=== PATIENT | male | born 1990 | race Caucasian/White ===

== ENCOUNTER → 2016-06-08 | Outpatient (CLI) | payer OTHER | END | disposition home or self-care (01) | LOC: C.RDSM 14:52 | PROVIDERS: ATTEND Physical Medicine & Rehabilitation Sports Medicine | DX: M25.512 Pain in left shoulder (principal) ==

== ENCOUNTER → 2016-06-16 | Outpatient (CLI) | payer OTHER ==
[~2016-06-16] MED LIST: GADAVIST IV PRN
--- NOTE | 2016-06-16 12:15 | DIAGNOSTIC IMAGING REPORT ---
FLUOROSCOPIC GUIDED LEFT SHOULDER ARTHROGRAM FLUOROSCOPY TIME: 5 seconds. HISTORY: Left shoulder pain.. PROCEDURE: After obtaining written informed consent, the patient was placed supine on the fluoroscopy table. A suitable site for needle insertion was marked using fluoroscopic guidance. The left shoulder was prepped and draped in the usual sterile fashion. 1% lidocaine was used for skin, subcutaneous and deep soft tissue anesthesia. Under intermittent fluoroscopic guidance, a 22 gauge 2.5 inch spinal needle was inserted into the left glenohumeral joint. A total of 14 cc of one-to-one mixture of dilute Magnevist (0.1 cc in 10 cc saline) and Optiray 300 were injected. The needle was then removed. There were no apparent complications. The patient was transported to for further imaging. IMPRESSION: Fluoroscopic-guided left shoulder arthrogram without immediate complication. Total injected volume was 14 cc. MR portion of the examination will be dictated separately. Electronically signed by: Marcelo Gisbon M.D. 06/16/2016 12:13 PM Dictated Date/Time: 06/16/2016 12:13 PM
--- NOTE | 2016-06-16 12:34 | DIAGNOSTIC IMAGING REPORT ---
MRI ARTHROGRAM OF THE LEFT SHOULDER CLINICAL HISTORY: Left shoulder pain. Instability. COMPARISON STUDY: Left shoulder radiographs June 08, 2016. TECHNIQUE: Following a fluoroscopically guided left shoulder arthrogram and utilizing a 1.5 Radha magnet, multiplanar, multi echo imaging of the left shoulder was performed without intravenous contrast. FINDINGS: There is mild posterior subluxation of the humerus with respect to the glenoid. There is no evidence for dislocation at this time. The proximal long head of biceps tendon is intact. There is no full-thickness rotator cuff tear. A Hill-Sachs deformity is noted. The glenoid labrum is diminutive. There is a tear of the superior posterior glenoid labrum. There is also a suspected tear of the anterior inferior glenoid labrum. No bony Bankart is present. No mass or fluid collection is shown adjacent to the left shoulder. There is no significant cartilage abnormality. IMPRESSION: 1. Complex circumferential labral tear, as described above. 2. Hill-Sachs deformity indicative of a previous anterior shoulder dislocation. 3. Posterior subluxation of the humeral head without dislocation at this time. 4. No full-thickness rotator cuff tear. Electronically signed by: Taiwo Butterfield M.D. 06/16/2016 12:32 PM Dictated Date/Time: 06/16/2016 12:20 PM
== END | disposition home or self-care (01) ==
LOC: C.MRIBC 10:57
PROVIDERS: ATTEND Physical Medicine & Rehabilitation Sports Medicine
DX: M25.512 Pain in left shoulder (principal); M25.312 Other instability, left shoulder; S43.022A Posterior subluxation of left humerus, initial encounter; X58.XXXA Exposure to other specified factors, initial encounter

== ENCOUNTER → 2016-07-14 | Day surgery (SDC) | payer OTHER ==
[2016-06-26 08:35] VITALS: Ht 190.5 cm; Wt 95.5 kg
[~2016-07-14] VITALS: Ht 190.5 cm; Wt 95.5 kg
[~2016-07-14] MED LIST changes: +ATROPINE SULFATE 0.1 MG/ML 5ML SYR IV PRN; +BUPIVACAINE/EPINEPHRINE 0.5% MPF 1:200,000 30 ML VIAL ONE; +CEFAZOLIN 2000 MG/60 ML D5W IV SCH; +DEXAMETHASONE SOD INJ 4 MG/ML VIAL ONE; +EpHEDrine SULFATE INJ 50 MG/ML AMP IV PRN; +EpINEphrine INJ 1MG/ML AMP 1 MG/ML AMP ONE; +FENTANYL CITRATE INJ 50 MCG/1 ML 2 ML VIAL ONE; -GADAVIST IV PRN; +GLYCOPYRROLATE INJ 0.2 MG/ML VIAL ONE; +HYDROmorphone INJ 1 MG/ML SYR IV PRN; +LACTATED RINGER'S 1000ML 1,000 ML IV SCH; +LEVOFLOXACIN 500 MG TAB PO ONE; +LIDOCAINE HCL 1% MPF 2 ML VIAL ONE; +LIDOCAINE HCL 2% 2 ML VIAL (20MG/ML) ONE; +MIDAZOLAM HCL 1 MG/ML 2ML VIAL ONE; +NEOSTIGMINE METHYLSULFATE 5 MG/5 ML SYR ONE; +ONDANSETRON INJ 2 MG/ML 2 ML VIAL IV PRN; +ONDANSETRON INJ 2 MG/ML 2 ML VIAL ONE; +OXYCODONE/ACETAMINOPHEN 5-325 TAB PO PRN; +PROPOFOL IV EMULSION 10 MG/ML 20 ML VIAL IV ONE; +ROCURONIUM BROMIDE 10 MG/ML 5 ML VIAL ONE; +ROPIVACAINE 0.5% 5 MG/ML 30 ML VIAL ONE; +SODIUM CHLORIDE 0.9% 1000ML 1,000 ML IV SCH
--- NOTE | 2016-07-14 07:31 | History & Physical Bridge Note ---
H&P Re-Evaluation Bridge Note: I have examined the patient, reviewed the History & Physical and in the interval since the performance of the History & Physical I have noted the following changes of clinical significance: No changes noted
--- NOTE | 2016-07-14 07:32 | Discharge Instructions ---
Discharge Instructions Date of Service July 14, 2016. Visit Reason for Visit: Left Shoulder Instability Discharge Discharge Diagnosis / Problem: same Discharge Goals Goal(s): Decrease discomfort, Improve function Medications Stopped Medications Name(s): na Restart Stopped Medication(s): resume all scripts as directed Activity Recommendations Activity Limitations: as noted below Lifting Limitations: until after follow-up appointment Exercise/Sports Limitations: until after follow-up appointment May Resume Sexual Activity: when tolerated Shower/Bathe: keep incision dry Driving or Machine Use: Anesthesia . Post Anesthesia Instructions: If you have had General Anesthesia or IV Sedation: * Do not drive today. * Resume driving when surgeon permits. * Do not make important decisions or sign legal documents today. * Call surgeon for: 1. Temperature elevations greater than 101 degrees F. 2. Uncontrollable pain. 3. Excessive bleeding. 4. Persistent nausea and vomiting. 5. Medication intolerance (nausea, vomiting or rash). * For nausea and vomiting use only clear liquids such as: tea, soda, bouillon until nausea subsides, then gradually increase diet as tolerated. * If you have any concerns or questions, call your surgeon's office. If physician is unavailable and it is an emergency, call 911 or go to the nearest emergency room. . Instructions / Follow-Up Instructions / Follow-Up The following are instructions to follow after "Shoulder Surgery" including, Acromioplasty, Rotator Cuff Repair and Instability Surgery ACTIVITY RECOMMENDATIONS: * Minimize activity after surgery. * No excessive walking, jogging, sports or laboring. * Return to activity is individualized depending on the patient and type of surgery. * Driving is not permitted until at least your first post operative visit. Please ask your doctor when it is safe to resume driving. * Expect increased discomfort with increased activity. Continue to ice the shoulder as needed. SCHOOL/WORK RECOMMENDATIONS: * You may return to sedentary work or school when you are feeling more comfortable. This is usually 3-7 days after surgery. MEDICATIONS: * You will have a prescription for pain medication and an anti-inflammatory medication after surgery. * Use the pain medication for severe pain and the anti-inflammatory for less severe pain. Once the pain medication has run out, try to use the anti-inflammatory medication. If this is not effective, contact the office for assistance. * The pain medication may cause nausea, constipation and drowsiness. You should see how they affect you before driving or similar activity. * The anti-inflammatory medication may cause stomach upset and bleeding. If this occurs let your doctor know immediately . * Take a stool softener like Colace or a laxative like Senokot to prevent constipation. DIET: * Resume previous diet. SPECIAL CARE: ICE: You have the option of an ice cooler, gel packs or ice bags. * If you have an ice cooler, refer to the instructions for that device. The ice cooler may be used continuously. * If you do not have an ice cooler, you will need to use ice bags or gel packs. Do not apply ice directly to the skin. Use a thin dressing or kirby shirt between the skin and ice bag. Apply ice for 20-30 minutes and repeat every 2-4 hours. This is especially important for the first 7-10 days after surgery. Once the pain improves, use ice as needed. ELEVATION: * You may be more comfortable sleeping in an upright position. Use the sling to elevate your arm. DRESSING: * Your dressing will be changed at your first therapy appointment approximately 4-5 days after surgery. Band-aids, tape strips or gauze may be applied. You may then change your dressing daily. * Reapply dressing followed by the EBIce cooling pad (if chosen) and then the sling. * Always wash your hands prior to touching the incision area. * Once the stitches are removed, you may leave the wound open to air or cover with gauze. * Expect some bloody drainage for the first few days after surgery. * Leave the tape strips, if present, in place for 5-7 days. * Band-aids and gauze may be changed daily. * There may be a gauze pad in your armpit area. This can be changed daily or replaced by a dry washcloth. SLING/BRACE: * You will need to use a sling or brace after surgery. The length of time the sling is used is dependent upon the type of surgery performed. * Arthroscopic Acromioplasty requires use of the sling for 2-4 weeks for comfort. * Labral procedures and Rotator Cuff Repairs require use of the sling for a longer period of time. Please check with your doctor prior to discontinuing the sling. BATHING: * You may shower or sponge-bathe immediately after surgery. The post operative shoulder dressing is mostly water-tight. You may shower right over this dressing, but be reasonably careful not to get the gauze or incision wet. * Once the dressing has been changed on the fourth or fifth day after surgery, you may shower and get the incision wet. * Wash with regular soap and water. * Do not bathe (submerge the incision), soak, swim or use a hot tub until the incision is completely healed over with normal skin and the doctor has given the OK to proceed. * There is no need to apply any ointments, powders or salves to your incision. * Do not apply alcohol or hydrogen peroxide directly to the incision. * Diluted peroxide (50:50 mixture with sterile saline) may be used to clean dried blood from around the incision area. THERAPY: * You will begin therapy four or five days after surgery. * Organized therapy with the therapist is important for the first 2-4 months after surgery depending on the type of procedure. During that time you will attend therapy 1-3 times per week. * You will also need to do daily exercises for range of motion and strength as instructed. * Patients who have a Capsular Shift Procedure will need to abide by temporary range of motion limitations. * Patients having Rotator Cuff Surgery are not allowed to actively lift their arms until 4-6 weeks after surgery. * Please check with your doctor regarding appropriate motion restrictions. FOLLOW UP VISIT: * If not already scheduled, please call the office at to schedule a follow-up appointment for 10 days after surgery and monthly thereafter. Diet Recommendations Recommended Home Diet: resume previous diet Procedures Procedures Performed: shoulder stabilization Pending Studies Studies pending at discharge: no List of pending studies: na Medical Emergencies . Who to Call and When: Medical Emergencies: If at any time you feel your situation is an emergency, please call 911 immediately. . Non-Emergent Contact Non-Emergency issues call your: Specialist Call Non-Emergent contact if: temperature is above 101.5, wound has increased drainage, wound has increased redness, wound has increased pain . . "Provider Documentation" section prepared by Richard Mchugh. .
--- NOTE | 2016-07-14 11:29 | [facility] Post Operative Brief Note ---
Immediate Operative Summary Operative Date July 14, 2016. Pre-Operative Diagnosis Left shoulder pain and instability Post-Operative Diagnosis Same as preop Procedure(s) Performed Left Shoulder Arthroscopic Labral Repair, Remplissage Surgeon Dr. Mchugh Duty Officer Surgeon(s) Dr. Chayo Watkins and Prashanth Manrique PA-C Estimated Blood Loss Minimal Findings hill sachs/bankart lesions Fluids (cc crystalloids) 1300cc Specimens None Drains none Anesthesia GET/REgional Complication(s) None Disposition Recovery Room / PACU
--- NOTE | 2016-07-14 12:32 | OPERATIVE REPORT ---
DATE OF OPERATION: 07/14/2016 SURGEON: Dr. Mchugh. BILLET SHEARER: Prashanth Manrique PA-C PREOPERATIVE DIAGNOSIS: Recurrent instability, left shoulder. POSTOPERATIVE DIAGNOSIS: Same. OPERATION PERFORMED: Arthroscopic Bankart repair with arthroscopic remplissage Hill-Sachs lesion. PERIOPERATIVE SITUATION: A 25-year-old male with intractable instability to his shoulder, had opposite side procedure done in years past. He has continued disability. Physical examination, x-ray and MRI scan consistent with the above diagnosis. OPERATION IN DETAIL: The patient appropriately identified, site verified, consent verified, 2 grams of Ancef were confirmed as being given. The left upper extremity was examined revealing gross instability could be completely dislocated. It was then sterilely prepped and draped in usual routine fashion with the patient in right lateral decubitus position. Posterior portal made 2 cm medial and inferior portions of the acromion joint entered, anterior portal made just off the edge of the AC joint. An accessory anterior portal made just above the subscap. All 3 portals have cannulas allowing the complete reversibility. The anterior labrum was completely peeled off with large labral flap tear posteriorly, which was debrided with the scope. The articular surfaces had some minor scuffing, but no exposed bone. The biceps anchor was good. The labrum was then lifted up, the capsule lifted up and then using the superior anterior portal, 3 drill holes made and 3 anchors placed using a PushLock technique with excellent rubber bumper adventist and capsular tightening. The area of the Hill-Sachs lesion was then identified. An accessory portal made there and the subacromial space entered and debrided and the debridement of the Hill-Sachs lesion occurred on an anchor. Threaded anchor was utilized that was double loaded, we got excellent purchase that was re-tapped. The sutures were placed using a shell up technique with a spinal needle and then tied down in the subacromial space. A good repair was obtained into the hills sachs lesion . The sutures were cut. The wound was irrigated. All portal was closed and then the wound was appropriately dressed. A 4.5 PEEK corkscrew was utilized for the remplissage. The blood loss was minimal. 1300 mL crystalloid. He will be kept immobile for 3-4 weeks to start physical therapy after that. Expect to return to full activities over 6 months. I attest to the content of the Intraoperative Record and any orders documented therein. Any exceptions are noted below. MTDD
[2016-07-14 12:33] VITALS: TEMP 36.8
--- NOTE | 2016-07-14 12:42 | OPERATIVE REPORT ---
PREOPERATIVE DIAGNOSIS: Left shoulder instability. POSTOPERATIVE DIAGNOSIS: Left shoulder same. PROCEDURE: Left shoulder arthroscopy, labral repair, and arthroscopic Remplissage. SURGEON: Dr. Mchugh. CLINICAL TRIALS SYSTEMS ADMINISTRATOR: Dr. Domingo. SECOND CLINICAL TRIALS SYSTEMS ADMINISTRATOR: Prashanth Manrique PA-C. HISTORY OF PRESENT ILLNESS: This 25-year-old white male presented to the office with complaints of left shoulder instability and recurrent dislocations subluxation. He had tried conservative care measures including activity modification and physical therapy without success. He elected to proceed with surgical intervention in hopes of alleviating his instability. OPERATION: The patient was administered a regional block and then taken to the operating room where he was given general anesthesia. He was prepped and draped in the usual sterile fashion. Please see Dr. Mchugh's operative report for specifics of the procedure. I was present for the entire case from initial patient positioning through final wound closure. Assistance was provided in patient positioning, arthroscopy, hardware placement, and final wound closure. The patient was taken to the recovery room in satisfactory condition.
[2016-07-14 13:25] VITALS: BP 121/65; PULSE 80; O2SAT 96
--- NOTE | 2016-07-14 13:30 | Anesthesia Progress Nt - [facility] ---
Anesthesia Post Op Note Date & Time July 14, 2016 at 13:31 Vital Signs Pain Intensity: 0 Vital Signs Past 12 Hours Date Time Temp Pulse Resp B/P Pulse Ox O2 Delivery O2 Flow Rate FiO2 07/14/16 12:33 36.8 61 16 123/75 99 Room Air 07/14/16 12:21 36.8 66 16 139/78 98 Room Air 07/14/16 12:21 65 17 07/14/16 12:21 66 17 97 07/14/16 12:20 139/78 07/14/16 12:16 71 19 07/14/16 12:16 73 19 97 07/14/16 12:15 129/89 07/14/16 12:11 66 19 98 07/14/16 12:11 65 19 07/14/16 12:10 126/82 07/14/16 12:06 62 16 100 07/14/16 12:06 65 16 07/14/16 12:05 122/73 07/14/16 12:01 64 29 100 07/14/16 12:01 62 29 07/14/16 12:00 127/76 07/14/16 11:56 59 22 100 07/14/16 11:56 60 22 07/14/16 11:55 72 20 07/14/16 11:55 73 20 121/68 100 07/14/16 11:50 68 18 125/67 100 07/14/16 11:50 68 18 07/14/16 11:45 73 31 99 07/14/16 11:45 74 31 07/14/16 11:45 36.8 83 18 131/75 97 Diffusion Mask 6 07/14/16 08:46 59 07/14/16 08:46 59 14 100 07/14/16 08:45 125/74 07/14/16 08:43 61 07/14/16 08:43 61 17 100 07/14/16 08:42 123/79 07/14/16 08:40 126/77 07/14/16 08:40 126/77 07/14/16 08:38 65 20 100 07/14/16 08:38 64 07/14/16 08:38 64 07/14/16 08:38 65 20 100 07/14/16 08:35 119/86 07/14/16 08:35 119/86 07/14/16 08:33 68 14 99 07/14/16 08:33 68 07/14/16 08:33 68 14 99 07/14/16 08:33 68 07/14/16 08:30 126/88 07/14/16 08:30 126/88 07/14/16 08:28 62 18 100 07/14/16 08:28 62 07/14/16 08:28 62 07/14/16 08:28 62 18 100 07/14/16 08:27 129/88 07/14/16 08:27 129/88 07/14/16 08:23 0 07/14/16 08:23 0 07/14/16 08:18 0 07/14/16 08:18 0 07/14/16 08:13 0 07/14/16 08:13 0 07/14/16 08:08 0 07/14/16 08:08 0 07/14/16 08:03 0 07/14/16 08:03 0 07/14/16 07:35 36.6 57 16 127/85 99 Room Air Notes Mental Status: alert / awake / arousable, participated in evaluation Pt Amnestic to Procedure: Yes Nausea / Vomiting: adequately controlled Pain: adequately controlled Airway Patency, RR, SpO2: stable & adequate BP & HR: stable & adequate Hydration State: stable & adequate Anesthetic Complications: no major complications apparent
== END | disposition home or self-care (01) ==
LOC: X.SURG 07:21
PROVIDERS: ATTEND Physical Medicine & Rehabilitation Sports Medicine
DX: M25.312 Other instability, left shoulder (principal); F17.290 Nicotine dependence, other tobacco product, uncomplicated; F12.10 Cannabis abuse, uncomplicated

== ENCOUNTER → 2016-08-17 | Outpatient (CLI) | payer OTHER | END | disposition home or self-care (01) | LOC: C.RDSM 13:36 | PROVIDERS: ATTEND Physical Medicine & Rehabilitation Sports Medicine | DX: M25.312 Other instability, left shoulder (principal) ==

== ENCOUNTER → 2016-11-13 | Outpatient (CLI) | payer OTHER ==
[~2016-11-13] MED LIST changes: -ATROPINE SULFATE 0.1 MG/ML 5ML SYR IV PRN; -BUPIVACAINE/EPINEPHRINE 0.5% MPF 1:200,000 30 ML VIAL ONE; -CEFAZOLIN 2000 MG/60 ML D5W IV SCH; -DEXAMETHASONE SOD INJ 4 MG/ML VIAL ONE; -EpHEDrine SULFATE INJ 50 MG/ML AMP IV PRN; -EpINEphrine INJ 1MG/ML AMP 1 MG/ML AMP ONE; -FENTANYL CITRATE INJ 50 MCG/1 ML 2 ML VIAL ONE; +GADAVIST IV PRN; -GLYCOPYRROLATE INJ 0.2 MG/ML VIAL ONE; -HYDROmorphone INJ 1 MG/ML SYR IV PRN; -LACTATED RINGER'S 1000ML 1,000 ML IV SCH; -LEVOFLOXACIN 500 MG TAB PO ONE; -LIDOCAINE HCL 1% MPF 2 ML VIAL ONE; -LIDOCAINE HCL 2% 2 ML VIAL (20MG/ML) ONE; -MIDAZOLAM HCL 1 MG/ML 2ML VIAL ONE; -NEOSTIGMINE METHYLSULFATE 5 MG/5 ML SYR ONE; -ONDANSETRON INJ 2 MG/ML 2 ML VIAL IV PRN; -ONDANSETRON INJ 2 MG/ML 2 ML VIAL ONE; -OXYCODONE/ACETAMINOPHEN 5-325 TAB PO PRN; -PROPOFOL IV EMULSION 10 MG/ML 20 ML VIAL IV ONE; -ROCURONIUM BROMIDE 10 MG/ML 5 ML VIAL ONE; -ROPIVACAINE 0.5% 5 MG/ML 30 ML VIAL ONE; -SODIUM CHLORIDE 0.9% 1000ML 1,000 ML IV SCH
--- NOTE | 2016-11-13 10:49 | DIAGNOSTIC IMAGING REPORT ---
RIGHT INJECTION SHOULDER PRE MRI CLINICAL HISTORY: 26-year-old male with history of remote right shoulder surgery after injury, recent recurrent right shoulder dislocations, left shoulder surgery in July and now over using right shoulder with resultant pain. COMPARISON: Plain radiographs from 2013. PROCEDURE: After obtaining written informed consent, the patient was placed supine on the fluoroscopy table. A suitable site for needle insertion was marked using fluoroscopic guidance. The right shoulder was prepped and draped in the usual sterile fashion. 1% lidocaine was used for skin, subcutaneous and deep soft tissue anesthesia. Under intermittent fluoroscopic guidance, a 22 gauge 2.5 inch spinal needle was inserted into the right glenohumeral joint. A total of 10 cc of one-to-one mixture of dilute Gadavist (0.1 cc in 10 cc saline) and Optiray 300 were injected. The needle was then removed. There were no apparent complications. The patient was transported to for further imaging. IMPRESSION: Fluoroscopic-guided right shoulder arthrogram without immediate complication. Total injected volume was 10 cc. MR portion of the examination will be dictated separately. Electronically signed by: Farhad Sinha M.D. 11/13/2016 10:48 AM Dictated Date/Time: 11/13/2016 10:46 AM
--- NOTE | 2016-11-13 11:49 | DIAGNOSTIC IMAGING REPORT ---
RIGHT UPPER EXTREMITY JOINT W/ CLINICAL HISTORY: 26 years-old Male presenting with right shoulder pain for the past few months after overuse following left shoulder surgery in July, history of remote right shoulder surgery 7-10 years ago, history of recurrent right shoulder dislocation. TECHNIQUE: Multisequence, multiplanar MR imaging of the right shoulder was performed after the administration of intra-articular contrast. IV contrast: None. COMPARISON: Correlation made to plain radiographs of the right shoulder from 2013. FINDINGS: Localizer images: Unremarkable. Intra-articular contrast distends the joint. There is abnormal interface of the joint capsule along the anterior aspect of the osseous glenoid consistent with periosteal stripping, likely from prior dislocation. The labrum is abnormal from the 2:00 position to 6:00 (anterior superior to anterior inferior). The anterior appears displaced with periosteal stripping. There may be minimal associated irregularity of the subjacent articular cartilage of the glenoid may be present (series 6 image 13). The biceps labral complex is normal with a prominent sublabral recess. Questionable partial disruption of the anterior band of the inferior glenohumeral ligament. Mild superior subluxation of the humeral head is evident with mild narrowing of the acromiohumeral interval. No bony edema is evident. Supraspinatus, infraspinatus, and teres minor tendons intact. Subscapularis tendon intact. Transverse ligament intact. The long head of the biceps tendon is well seated within the intertubercular groove. Short and long heads of the biceps tendon is normal in signal intensity. Normal muscle bulk and muscle signal intensity. No significant abnormality of the acromioclavicular joint. The undersurface of the acromion is flat (type II). IMPRESSION: 1. Labral tear involving the anterior superior to anterior inferior labrum which is displaced with periosteal stripping (Perthes lesion). There is also a questionable site of irregularity of the adjacent glenoid articular cartilage (possible glenoid labral articular disruption). This does not involve the biceps labral complex. 2. Periosteal stripping along the anterior joint capsule an possible disruption of the anterior band of the inferior glenohumeral ligament could be consistent with prior dislocation injury. 3. No evidence of rotator cuff tear. 4. 5. 6. Electronically signed by: Farhad Sinha M.D. 7. 11/13/2016 11:48 AM 8. 9. Dictated Date/Time: 11/13/2016 10:50 AM
== END | disposition home or self-care (01) ==
LOC: C.MRIBC 09:44
PROVIDERS: ATTEND Physical Medicine & Rehabilitation Sports Medicine
DX: M25.311 Other instability, right shoulder (principal)

== ENCOUNTER → 2017-01-05 | Day surgery (SDC) | payer OTHER ==
[2016-12-11 12:57] VITALS: Ht 190.5 cm; Wt 102.3 kg
[~2017-01-05] VITALS: Ht 190.5 cm; Wt 102.3 kg
[~2017-01-05] MED LIST changes: +ATROPINE SULFATE 0.1 MG/ML 5ML SYR IV PRN; +CEFAZOLIN 2000MG IV PUSH 10 ML IV SCH; +DEXAMETHASONE SOD INJ 4 MG/ML VIAL ONE; +EpHEDrine SULFATE INJ 50 MG/ML AMP IV PRN; +EpINEphrine HCL INJ 1 MG/ML 5ML SYRINGE ONE; +EpINEphrine INJ 1MG/ML AMP 1 MG/ML AMP ONE; +FENTANYL CITRATE INJ 50 MCG/1 ML 2 ML VIAL IV PRN; +FENTANYL CITRATE INJ 50 MCG/1 ML 2 ML VIAL ONE; +FLUMAZENIL 0.1 MG/1 ML 10 ML VIAL IV PRN; -GADAVIST IV PRN; +HYDROmorphone INJ 2 MG/ML SYR/VIAL IV PRN; +LABETALOL HCL IV 5 MG/ML 20ML IV PRN; +LACTATED RINGER'S 1000ML 1,000 ML IV SCH; +LEVOFLOXACIN 500 MG TAB PO SCH; +LIDOCAINE HCL 2% 2 ML VIAL (20MG/ML) ONE; +MEPERIDINE HCL 25 MG/ML CARP IV PRN; +MIDAZOLAM HCL 1 MG/ML 2ML VIAL ONE; +NALOXONE HCL 0.4 MG/1 ML VIAL/CARP IV PRN; +ONDANSETRON INJ 2 MG/ML 2 ML VIAL IV PRN; +ONDANSETRON INJ 2 MG/ML 2 ML VIAL ONE; +PHENYLEPHRINE 100MCG/ML 5ML SYR IV PRN; +PROPOFOL IV EMULSION 10 MG/ML 20 ML VIAL IV ONE; +ROCURONIUM BROMIDE 10 MG/ML 5 ML VIAL IV ONE; +ROPIVACAINE 0.5% 5 MG/ML 30 ML VIAL ONE; +SODIUM CHLORIDE 0.9% 1000ML 1,000 ML IV SCH
--- NOTE | 2017-01-05 11:15 | History & Physical Bridge Note ---
H&P Re-Evaluation Bridge Note: I have examined the patient, reviewed the History & Physical and in the interval since the performance of the History & Physical I have noted the following changes of clinical significance: consent reviewed.No changes noted
--- NOTE | 2017-01-05 11:17 | Discharge Instructions ---
Discharge Instructions Date of Service Jan 05, 2017. Visit Reason for Visit: Right Shoulder Instability With Labral Tear Discharge Discharge Diagnosis / Problem: same Discharge Goals Goal(s): Decrease discomfort, Improve function Medications Stopped Medications Name(s): na Restart Stopped Medication(s): use scripts as directed Activity Recommendations Activity Limitations: as noted below Lifting Limitations: until after follow-up appointment Exercise/Sports Limitations: until after follow-up appointment May Resume Sexual Activity: when tolerated Shower/Bathe: keep incision dry Driving or Machine Use: Anesthesia . Post Anesthesia Instructions: If you have had General Anesthesia or IV Sedation: * Do not drive today. * Resume driving when surgeon permits. * Do not make important decisions or sign legal documents today. * Call surgeon for: 1. Temperature elevations greater than 101 degrees F. 2. Uncontrollable pain. 3. Excessive bleeding. 4. Persistent nausea and vomiting. 5. Medication intolerance (nausea, vomiting or rash). * For nausea and vomiting use only clear liquids such as: tea, soda, bouillon until nausea subsides, then gradually increase diet as tolerated. * If you have any concerns or questions, call your surgeon's office. If physician is unavailable and it is an emergency, call 911 or go to the nearest emergency room. . Instructions / Follow-Up Instructions / Follow-Up The following are instructions to follow after "Shoulder Surgery" including, Acromioplasty, Rotator Cuff Repair and Instability Surgery ACTIVITY RECOMMENDATIONS: * Minimize activity after surgery. * No excessive walking, jogging, sports or laboring. * Return to activity is individualized depending on the patient and type of surgery. * Driving is not permitted until at least your first post operative visit. Please ask your doctor when it is safe to resume driving. * Expect increased discomfort with increased activity. Continue to ice the shoulder as needed. SCHOOL/WORK RECOMMENDATIONS: * You may return to sedentary work or school when you are feeling more comfortable. This is usually 3-7 days after surgery. MEDICATIONS: * You will have a prescription for pain medication and an anti-inflammatory medication after surgery. * Use the pain medication for severe pain and the anti-inflammatory for less severe pain. Once the pain medication has run out, try to use the anti-inflammatory medication. If this is not effective, contact the office for assistance. * The pain medication may cause nausea, constipation and drowsiness. You should see how they affect you before driving or similar activity. * The anti-inflammatory medication may cause stomach upset and bleeding. If this occurs let your doctor know immediately . * Take a stool softener like Colace or a laxative like Senokot to prevent constipation. DIET: * Resume previous diet. SPECIAL CARE: ICE: You have the option of an ice cooler, gel packs or ice bags. * If you have an ice cooler, refer to the instructions for that device. The ice cooler may be used continuously. * If you do not have an ice cooler, you will need to use ice bags or gel packs. Do not apply ice directly to the skin. Use a thin dressing or kirby shirt between the skin and ice bag. Apply ice for 20-30 minutes and repeat every 2-4 hours. This is especially important for the first 7-10 days after surgery. Once the pain improves, use ice as needed. ELEVATION: * You may be more comfortable sleeping in an upright position. Use the sling to elevate your arm. DRESSING: * Your dressing will be changed at your first therapy appointment approximately 4-5 days after surgery. Band-aids, tape strips or gauze may be applied. You may then change your dressing daily. * Reapply dressing followed by the EBIce cooling pad (if chosen) and then the sling. * Always wash your hands prior to touching the incision area. * Once the stitches are removed, you may leave the wound open to air or cover with gauze. * Expect some bloody drainage for the first few days after surgery. * Leave the tape strips, if present, in place for 5-7 days. * Band-aids and gauze may be changed daily. * There may be a gauze pad in your armpit area. This can be changed daily or replaced by a dry washcloth. SLING/BRACE: * You will need to use a sling or brace after surgery. The length of time the sling is used is dependent upon the type of surgery performed. * Arthroscopic Acromioplasty requires use of the sling for 2-4 weeks for comfort. * Labral procedures and Rotator Cuff Repairs require use of the sling for a longer period of time. Please check with your doctor prior to discontinuing the sling. BATHING: * You may shower or sponge-bathe immediately after surgery. The post operative shoulder dressing is mostly water-tight. You may shower right over this dressing, but be reasonably careful not to get the gauze or incision wet. * Once the dressing has been changed on the fourth or fifth day after surgery, you may shower and get the incision wet. * Wash with regular soap and water. * Do not bathe (submerge the incision), soak, swim or use a hot tub until the incision is completely healed over with normal skin and the doctor has given the OK to proceed. * There is no need to apply any ointments, powders or salves to your incision. * Do not apply alcohol or hydrogen peroxide directly to the incision. * Diluted peroxide (50:50 mixture with sterile saline) may be used to clean dried blood from around the incision area. THERAPY: * You will begin therapy four or five days after surgery. * Organized therapy with the therapist is important for the first 2-4 months after surgery depending on the type of procedure. During that time you will attend therapy 1-3 times per week. * You will also need to do daily exercises for range of motion and strength as instructed. * Patients who have a Capsular Shift Procedure will need to abide by temporary range of motion limitations. * Patients having Rotator Cuff Surgery are not allowed to actively lift their arms until 4-6 weeks after surgery. * Please check with your doctor regarding appropriate motion restrictions. FOLLOW UP VISIT: * If not already scheduled, please call the office at to schedule a follow-up appointment for 10 days after surgery and monthly thereafter. Diet Recommendations Recommended Home Diet: resume previous diet Procedures Procedures Performed: see op note Pending Studies Studies pending at discharge: no Medical Emergencies . Who to Call and When: Medical Emergencies: If at any time you feel your situation is an emergency, please call 911 immediately. . Non-Emergent Contact Non-Emergency issues call your: Specialist Call Non-Emergent contact if: wound has increased drainage, wound has increased redness, wound has increased pain . . "Provider Documentation" section prepared by Richard Mchugh. .
--- NOTE | 2017-01-05 14:04 | [facility] Post Operative Brief Note ---
Immediate Operative Summary Operative Date Jan 05, 2017. Pre-Operative Diagnosis Right Shoulder instability with labral Tear Post-Operative Diagnosis same as preop Procedure(s) Performed Arthroscopy bankart repair with remplissage Surgeon Dr. Greenfield Forging Press Operator Surgeon(s) KENYA Hawthorne (until 1225) KENYA Osorio (started at 1225) Estimated Blood Loss 25cc Findings instability/hill sachs lesion /bankart Fluids (cc crystalloids) 1400cc Specimens none per surgeon Drains none Anesthesia GET/Block Complication(s) None Disposition Recovery Room / PACU
--- NOTE | 2017-01-05 14:24 | [facility] Operative Report ---
Operative Report Operative Date Jan 05, 2017. Pre-Operative Diagnosis Right Shoulder instability with labral Tear Post-Operative Diagnosis same as preop Procedure(s) Performed Right Shoulder Arthroscopic Bankart Repair With Remplissage Surgeon Dr. Greenfield Full Time Babysitter Surgeon(s) KENYA Hawthorne (until 1225) KENYA Osorio (started at 1225) Estimated Blood Loss 25ml Findings same Fluids (cc crystalloids) 1400cc Specimens none per surgeon Drains none Anesthesia general, block Complication(s) None Disposition Recovery Room / PACU Implants see Dr. Mchugh's operative report for surgical details regarding implants Indications right shoulder diagnosed as instability secondary to labral tear, imaging obtained, surgery recommended, consents signed Description of Procedure taken to the OR, prepped and draped, I was present the second half of the case, MAYTE Hamilton PA-C the first half, please see Dr. Mchugh's op note for further findings and detail. I attest to the content of the Intraoperative Record and any orders documented therein. Any exceptions are noted below.
--- NOTE | 2017-01-05 14:56 | OPERATIVE REPORT ---
DATE OF OPERATION: 01/05/2017 SURGEON: Dr. Richard Mchugh. ADMINISTRATIVE SPECIALIST: Alex Hamilton PA-C, substituted by Kyle Allen PA-C. No resident or fellow available. PREOPERATIVE DIAGNOSIS: Recurrent instability, right shoulder with Hill-Sachs lesion. POSTOPERATIVE DIAGNOSIS: Same. OPERATION PERFORMED: Arthroscopic Bankart repair with remplissage. PERIOPERATIVE SITUATION: Medically cleared male with previous attempt at arthroscopic shaver, did not have remplissage, did not have a good Bankart repair. He has failed, wanted to proceed with surgical treatment. Detailed examination did not reveal a significant bone loss to warrant immediate use of Vida/Latarjet. As a result, he wanted to be given another attempt at arthroscopic treatment, even though he knew that there was a significant failure rate of about 15-20%. OPERATION IN DETAIL: The patient appropriately identified, site verified, consent verified, 2 grams of Ancef confirmed as being given. The shoulder was examined, revealing gross instability. He was then carefully placed in the left lateral decubitus position and right upper extremity prepped and draped in usual routine fashion with the arm suspension device. A posterolateral portal made 2 cm medial and inferior to posterolateral tip of the acromion and anterior portal made just off the edge of the AC joint. Inspection of the joint revealed the significant peel-back ALPSA type lesion, did not reveal any significant glenoid bone loss, could see the Hill-Sachs lesion. This was all prepared using elevators and accessory portals. An accessory posterolateral portal and accessory anterior portal were made. This was above the subscap. Once the ALPSA lesion was all lifted, it could be verified as being mobilized. The area of the remplissage was then debrided, the bone and 2 anchors were placed, it required revision of 1 anchor, they were 3.0 anchors by Arthrex. They were suture tacked. These were then shuttled into the subacromial space and bursa were resected carefully without entering any of the sutures. The suture was then tied to itself and shuttled down and pulled the rotator cuff into the Hill-Sachs lesion nicely the second limb was left open. Attention was then turned towards repairing the Bankart, 3 anchors were placed anteriorly and 1 posterolaterally. These were 2.9 PEEK anchors. Excellent reconstruction of the labral capsule complex was obtained. Looking anteriorly, there was complete elimination of any free space. The traction was then released and the remplissage was then tied. This was verified subacromial space, it was tied manually with half hitches. Eight throws were placed. The knot was then cut, leaving a small tag. The procedure was then terminated. All instruments and fluid removed. The portals closed with interrupted 3-0 nylon sutures. There were multiple accessory portals, 7 portals all in total. ESTIMATED BLOOD LOSS: 25 mL. CRYSTALLOID: 1400 mL. SUMMARY OF IMPLANTS: Suture anchor PEEK, suture tack size 3 x 12.5 x3, one was disposed off, [address] and then 2.9 PEEK anchors x4, 3 anteriorly and 1 posteriorly. I attest to the content of the Intraoperative Record and any orders documented therein. Any exceptions are noted below. MTDD
[2017-01-05 15:10] VITALS: TEMP 36.5
--- NOTE | 2017-01-05 15:42 | Anesthesia Progress Nt - [facility] ---
Anesthesia Post Op Note Date & Time Jan 05, 2017 at 15:42 Vital Signs Pain Intensity: 0 Vital Signs Past 12 Hours Date Time Temp Pulse Resp B/P (MAP) Pulse Ox O2 Delivery O2 Flow Rate FiO2 01/05/17 15:10 36.5 64 16 122/75 (91) 99 Room Air 01/05/17 15:03 58 17 01/05/17 15:03 58 17 98 01/05/17 15:02 36.5 55 16 121/78 98 Room Air 01/05/17 15:01 121/78 01/05/17 14:58 63 21 99 01/05/17 14:58 63 21 01/05/17 14:56 123/80 01/05/17 14:53 60 17 01/05/17 14:53 62 17 97 01/05/17 14:51 166/108 01/05/17 14:48 52 14 100 01/05/17 14:48 52 14 01/05/17 14:46 174/91 01/05/17 14:43 61 15 01/05/17 14:43 60 15 100 01/05/17 14:42 63 16 100 01/05/17 14:42 65 16 01/05/17 14:41 160/97 01/05/17 14:37 60 16 01/05/17 14:37 59 16 100 01/05/17 14:36 66 24 169/93 100 01/05/17 14:36 65 24 01/05/17 14:31 69 20 166/91 100 01/05/17 14:31 70 20 01/05/17 14:29 174/72 01/05/17 14:27 193/80 01/05/17 14:26 75 98 01/05/17 14:26 75 01/05/17 14:26 36.0 75 16 193/80 99 Diffusion Mask 6 01/05/17 11:35 0 01/05/17 11:34 83 01/05/17 11:34 83 18 98 01/05/17 11:31 133/82 01/05/17 11:29 83 01/05/17 11:29 84 17 99 01/05/17 11:28 141/99 01/05/17 10:06 36.9 83 16 126/77 (93) 96 Room Air Notes Mental Status: alert / awake / arousable, participated in evaluation Pt Amnestic to Procedure: Yes Nausea / Vomiting: adequately controlled Pain: adequately controlled Airway Patency, RR, SpO2: stable & adequate BP & HR: stable & adequate Hydration State: stable & adequate Anesthetic Complications: no major complications apparent
[2017-01-05 15:50] VITALS: BP 123/79; PULSE 71; O2SAT 100
== END | disposition home or self-care (01) ==
LOC: X.SURG 09:59
PROVIDERS: ATTEND Physical Medicine & Rehabilitation Sports Medicine
DX: M25.311 Other instability, right shoulder (principal); M24.411 Recurrent dislocation, right shoulder

== ENCOUNTER → 2017-02-22 | Outpatient (CLI) | payer OTHER | END | disposition home or self-care (01) | LOC: C.RDSM 12:03 | PROVIDERS: ATTEND Physical Medicine & Rehabilitation Sports Medicine | DX: M25.511 Pain in right shoulder (principal) ==

== ENCOUNTER → 2017-06-21 | Outpatient (CLI) | payer OTHER | END | disposition home or self-care (01) | LOC: C.RDSM 18:47 | PROVIDERS: ATTEND Physical Medicine & Rehabilitation Sports Medicine | DX: M25.511 Pain in right shoulder (principal); M25.512 Pain in left shoulder ==